=== PATIENT | male | born 1965 | race Caucasian/White ===

== ENCOUNTER 2018-06-18 16:59 | Emergency (ER) | payer OTHER ==
[2018-06-18] MEDS ORDERED: NS 1,000 ML IV ONE ×2 (17:29→17:56)
--- NOTE | 2018-06-18 17:33 | EDPHY ---
H & P Time Seen by Provider: 06/18/18 17:17 HPI/ROS: CHIEF COMPLAINT: Abdominal pain HISTORY OF PRESENT ILLNESS: Patient lasted a bowel movement a week ago on Wednesday. Starting Wednesday he thought it may be due to stress as he had a court date for a family issue. Patient felt bloated and tried milk of magnesia and Dulcolax but that did not help. He says the symptoms are worse when he tries to eat. It has always been on the right lower quadrant does not radiate not associated with fever or urinary symptoms. He says it is a little bit better with movement. Not vomiting and no trauma. REVIEW OF SYSTEMS: Eye: no change in vision ENT: no sore throat Cardiac: no chest pain or syncope Pulmonary: no cough or SOB Abdomen: HPI Musculoskeletal: no back pain Skin: no rash Neuro: no headache Constitutional: no fever : no urinary symptoms or testicular symptoms. A comprehensive 10 point review of systems is otherwise negative aside from elements mentioned in the history of present illness. Past medical history: Tonsillectomy Social history: No alcohol or tobacco General Appearance: Alert and conversant, cooperative. Eyes: No scleral icterus. ENT, Mouth: Dry mucous membranes Respiratory: Normal respiratory effort, breath sounds equal, lungs are clear to auscultation. Cardiovascular: Regular rate and rhythm. Gastrointestinal: Bilateral lower abdominal tenderness without rebound or guarding, rectal shows no stool in the vault. Neurological: Alert, face symmetric, normal motor and sensory in extremities. Skin: Warm and dry, no rashes. Musculoskeletal: No peripheral edema. Psychiatric: Not agitated. Emergency Department course/MDM: CT scanning discussed and consented. Does not have physical exam evidence definitively proven constipation. Distal 2mm right ureteral stone, Cash at 1837. Constipation without other abnormalities on CT. 1899: Results discussed. Symptoms are relatively well controlled now. Declined any additional pain medication. We discussed 1st treating his constipation tonight with modified colonoscopy prep, he is not to take any narcotic pain medication for his kidney stone until he starts having a bowel movement. There is no evidence of bowel obstruction per Radiology on his CT scan, I think this is a reasonable way to proceed. Smoking Status: Never smoked Constitutional: Initial Vital Signs Temperature (C) 37.2 C 06/18/18 17:07 Heart Rate 86 06/18/18 17:07 Respiratory Rate 16 06/18/18 17:07 Blood Pressure 163/101 H 06/18/18 17:07 O2 Sat (%) 97 06/18/18 17:07 O2 Delivery Mode Room Air Allergies/Adverse Reactions: Penicillins Allergy (Verified 06/18/18 17:12) Home Medications: Medication Instructions Recorded Hydrocodone/APAP 5/325 [[place] 1 tab PO Q4-6PRN PRN #11 tab 06/18/18 5/325] Medical Decision Making - Diagnostics Imaging Results: Imaging Impressions Abdomen/Pelvis CT 06/18/18 17:56 Impression: 1. 2-mm calculus in the pelvis on the right side, presumably a distal right ureteral calculus. 2. Right hydronephrosis consistent with obstructive uropathy. 3. Constipation. 4. See above report for additional findings. Results called and discussed with Eduardo Verdin MD on June 18, 2018 at 1839 hours. Attention: This CT examination is specifically designed to evaluate patients who are clinically suspected of having acute obstructive uropathy. This examination does not use radiographic contrast, and as such, provides only a limited evaluation of the abdomen, pelvis, and retroperitoneum. Imaging: Discussed imaging studies w/ operations clerk Radiologist Differential Diagnosis: Differential considered including but not limited to constipation, appendicitis , diverticulitis, bowel obstruction - Data Points Laboratory Results: Laboratory Results 06/18/18 17:30 06/18/18 17:30 06/18/18 06/18/18 06/18/18 17:46 17:35 17:30 WBC RBC Hgb POC Hgb 13.9 gm/dL gm/dL (13.7-17.5) Hct POC Hct 41 % % (40-51) MCV MCH MCHC RDW Plt Count MPV Neut % (Auto) Lymph % (Auto) Rhea % (Auto) Eos % (Auto) Baso % (Auto) Nucleat RBC Rel Count Absolute Neuts (auto) Absolute Lymphs (auto) Absolute Monos (auto) Absolute Eos (auto) Absolute Basos (auto) Absolute Nucleated RBC Immature Gran % Immature Gran # POC Sodium 138 mEq/L mEq/L (135-145) Sodium POC Potassium 3.9 mEq/L mEq/L (3.3-5.0) Potassium POC Chloride 98 mEq/L mEq/L (97-110) Chloride Carbon Dioxide Anion Gap POC BUN 18 mg/dL mg/dL (7-23) BUN Creatinine POC Creatinine 1.5 mg/dL H mg/dL (0.7-1.3) Estimated GFR Glucose POC Glucose 126 mg/dL H mg/dL (70-100) Calcium Urine Color YELLOW Urine Appearance MODERATELY TURBID Urine pH 7.0 (5.0-7.5) Ur Specific [place] 1.018 (1.002-1.030) Urine Protein NEGATIVE (NEGATIVE) Urine Ketones NEGATIVE (NEGATIVE) Urine Blood NEGATIVE (NEGATIVE) Urine Nitrate NEGATIVE (NEGATIVE) Urine Bilirubin NEGATIVE (NEGATIVE) Urine Urobilinogen NEGATIVE EU EU (0.2-1.0) Ur Leukocyte Esterase NEGATIVE (NEGATIVE) Urine Glucose NEGATIVE (NEGATIVE) Stool Occult Bld Scrn NEGATIVE (NEGATIVE) 06/18/18 06/18/18 17:30 17:30 WBC 7.40 10^3/uL 10^3/uL (3.80-9.50) RBC 4.26 10^6/uL L 10^6/uL (4.40-6.38) Hgb 13.7 g/dL g/dL (13.7-17.5) POC Hgb Hct 38.5 % L % (40.0-51.0) POC Hct MCV 90.4 fL fL (81.5-99.8) MCH 32.2 pg pg (27.9-34.1) MCHC 35.6 g/dL g/dL (32.4-36.7) RDW 11.6 % % (11.5-15.2) Plt Count 196 10^3/uL 10^3/uL (150-400) MPV 9.2 fL fL (8.7-11.7) Neut % (Auto) 75.1 % H % (39.3-74.2) Lymph % (Auto) 13.0 % L % (15.0-45.0) Rhea % (Auto) 10.7 % % (4.5-13.0) Eos % (Auto) 0.7 % % (0.6-7.6) Baso % (Auto) 0.4 % % (0.3-1.7) Nucleat RBC Rel Count 0.0 % % (0.0-0.2) Absolute Neuts (auto) 5.56 10^3/uL 10^3/uL (1.70-6.50) Absolute Lymphs (auto) 0.96 10^3/uL L 10^3/uL (1.00-3.00) Absolute Monos (auto) 0.79 10^3/uL 10^3/uL (0.30-0.80) Absolute Eos (auto) 0.05 10^3/uL 10^3/uL (0.03-0.40) Absolute Basos (auto) 0.03 10^3/uL 10^3/uL (0.02-0.10) Absolute Nucleated RBC 0.00 10^3/uL 10^3/uL (0-0.01) Immature Gran % 0.1 % % (0.0-1.1) Immature Gran # 0.01 10^3/uL 10^3/uL (0.00-0.10) POC Sodium Sodium 138 mEq/L mEq/L (135-145) POC Potassium Potassium 4.3 mEq/L mEq/L (3.3-5.0) POC Chloride Chloride 98 mEq/L mEq/L (97-110) Carbon Dioxide 28 mEq/l mEq/l (22-31) Anion Gap 12 mEq/L mEq/L (6-14) POC BUN BUN 19 mg/dL mg/dL (7-23) Creatinine 1.5 mg/dL H mg/dL (0.7-1.3) POC Creatinine Estimated GFR 49 Glucose 123 mg/dL H mg/dL (70-100) POC Glucose Calcium 9.5 mg/dL mg/dL (8.5-10.4) Urine Color Urine Appearance Urine pH Ur Specific [place] Urine Protein Urine Ketones Urine Blood Urine Nitrate Urine Bilirubin Urine Urobilinogen Ur Leukocyte Esterase Urine Glucose Stool Occult Bld Scrn Medications Given: Discontinued Medications Sodium Chloride (Ns) 1,000 mls @ 0 mls/hr IV EDNOW ONE; Wide Open PRN Reason: Protocol Stop: 06/18/18 17:30 Last Admin: 06/18/18 17:41 Dose: 1,000 mls Sodium Chloride (Ns) 1,000 mls @ 0 mls/hr IV EDNOW ONE; Wide Open PRN Reason: Protocol Stop: 06/18/18 17:57 Last Admin: 06/18/18 19:04 Dose: Not Given Point of Care Test Results: Chemistry 06/18/18 17:46 POC Sodium 138 mEq/L mEq/L (135-145) POC Potassium 3.9 mEq/L mEq/L (3.3-5.0) POC Chloride 98 mEq/L mEq/L (97-110) POC BUN 18 mg/dL mg/dL (7-23) POC Creatinine 1.5 mg/dL H mg/dL (0.7-1.3) POC Glucose 126 mg/dL H mg/dL (70-100) ISTAT H&H 06/18/18 17:46 POC Hgb 13.9 gm/dL gm/dL (13.7-17.5) POC Hct 41 % % (40-51) Departure - Departure Disposition: Home, Routine, Self-Care Clinical Impression: Renal colic on right side Constipation Qualifiers: Constipation type: unspecified constipation type Qualified Code(s): K59.00 - Constipation, unspecified Condition: Good Instructions: Constipation (ED), Renal Colic (ED) Additional Instructions: Take 2 oral Dulcolax tonight, and then start MiraLax 2 hr later. Get the colonoscopy prep and mix half of the container as directed. Drink an 8 ounce glass every 20-30 minutes until you have a bowel movement. Try not to take the pain medication for your kidney stone until after you have had some movement of your bowels. Strain urine, bring any stone that you find in a Ziploc bag to your follow-up appointment. Please follow-up with your doctor or referral urologist next week. Referrals: Diony Mcdaniel MD [Medical Doctor] - As per Instructions Prescriptions: Hydrocodone/APAP 5/325 [[place] 5/325] 1 tab PO Q4-6PRN PRN #11 tab PRN Reason: For Pain
[2018-06-18 17:52] LABS: PLATELET COUNT 196 10^3/uL (150-400)
[2018-06-18 19:16] VITALS: BP 149/88
== END 2018-06-18 19:37 | disposition home or self-care (01) ==
DX: N23 Unspecified renal colic (principal); K59.00 Constipation, unspecified
CPT/HCPCS: 82435-PO; 82565-PO; 82947-PO; 84132-PO; 84295-PO; 84520-PO; 85014-PO